=== PATIENT | male | born 1945 | race American Indian/Alaskan Native ===

== ENCOUNTER 2017-09-25 11:06 | Emergency (ER) | payer MEDICARE, BC ==
--- NOTE | 2017-09-25 21:24 | Emergency Department Report ---
ED Abdominal Pain HPI - General Chief Complaint: Rectal Pain Stated Complaint: HEMORIDS Time Seen by Provider: 09/25/17 20:50 Source: patient, family Mode of arrival: Ambulatory Limitations: No Limitations - History of Present Illness Initial Comments: 72-year-old male with a past medical history of prostate enlargement, end- stage renal disease dialysis presents to the hospital complaining of continued hemorrhoid pain for the last 2 months. Patient using [id number] medication without improvement. He denies any rectal bleeding and states his bowels are moving normally. He did not go to his scheduled dialysis today due to rectal pain and instead came to the ER for evaluation. Patient taking water pills and urinates about 1 time per day average. He denies any fever, nausea, vomiting, melena, hematochezia, or abdominal pain. Hemorrhoid/rectal Pain is moderate to severe in intensity. Severity scale (0 -10): 10 - Related Data Home Medications Medication Instructions Recorded Confirmed Last Taken Super Beta Prostate 2 cap PO DAILY 08/05/15 08/05/15 08/02/15 2 cap Tamsulosin [Flomax] 0.4 mg PO QDAY 08/05/15 08/05/15 08/02/15 0.4 mg Previous Rx's Medication Instructions Recorded Last Taken Type Epoetin Dagoberto 10,000 Unit [Procrit] 10,000 unit IV FAUSTINA PRN #1 vial 08/13/15 Unknown Rx HYDROcodone/APAP 5-325 [[place] 1 each PO Q4H PRN #30 tablet 08/13/15 Unknown Rx 5-325 mg TAB] Hydrocortisone [Anucort-HC SUPPOS] 25 mg RC BID PRN #20 supp.rect 09/26/17 Unknown Rx Allergies Allergy/AdvReac Type Severity Reaction Status Date / Time No Known Allergies Allergy Verified 02/07/15 21:15 ED Review of Systems ROS: Stated complaint: HEMORIDS Other details as noted in HPI Comment: All other systems reviewed and negative ED Past Medical Hx - Past Medical History Previous Medical History?: Yes Hx Renal Disease: Yes (dialysis Thursday, Thursday, and Thursday) Additional medical history: Takes a prescribed "water pill" to help urinate, kidney failure - Social History Smoking Status: Former Smoker - Medications Home Medications: Home Medications Medication Instructions Recorded Confirmed Last Taken Type Super Beta Prostate 2 cap PO DAILY 08/05/15 08/05/1508/01/16 History 2 cap Tamsulosin [Flomax] 0.4 mg PO QDAY 08/05/15 08/05/15 08/02/15 History 0.4 mg Epoetin Dagoberto 10,000 Unit [Procrit] 10,000 unit IV FAUSTINA PRN #1 vial 08/13/15 Unknown Rx HYDROcodone/APAP 5-325 [[place] 1 each PO Q4H PRN #30 tablet 08/13/15 Unknown Rx 5-325 mg TAB] Hydrocortisone [Anucort-HC SUPPOS] 25 mg RC BID PRN #20 supp.rect 09/26/17 Unknown Rx ED Physical Exam - General Limitations: No Limitations - Other Other exam information: General: No limitations, patient is alert in no acute distress Head exam: Atraumatic, normocephalic Eyes exam: Normal appearance, pupils equal reactive to light, extraocular movements intact ENT: Moist mucous membrane, normal oropharynx Neck exam: Normal inspection, full range of motion, no meningismus nontender Respiratory exam: Clear to auscultation bilateral, no wheezes, rales, crackles Cardiovascular: Normal rate and rhythm, right forearm dialysis access with palpable thrill Abdomen: Soft, nondistended, palpable suprapubic mass questionable bladder that is nontender on exam, with normal bowel sounds, no rebound, or guarding Rectal: Multiple pink hemorrhoids noted without active bleeding or necrosis Extremity: Full range of motion normal inspection no deformity Back: Normal Inspection, full range of motion, no tenderness Neurologic: Alert, oriented x3, cranial nerves intact, no motor or sensory deficit Psychiatric: normal affect, normal mood Skin: Warm, dry, intact ED Course Vital Signs 09/25/17 09/25/17 09/25/17 11:40 20:34 20:35 Temperature 98.7 F 98.1 F Pulse Rate 76 79 Respiratory 18 18 Rate Blood Pressure 179/88 Blood Pressure 127/83 [Left] O2 Sat by Pulse 99 98 98 Oximetry - Reevaluation(s) Reevaluation #1: 09/25/17 23:53 Family member at bedside states that pt has not been diagnosed with Prostate cancer and not undergoing treatment. Details of urology workup unknown. - Consultations Consultation #1: 09/25/17 23:52 case d/w DR Akers who is famililar with pt but not familiar with outpt urology workup 09/26/17 00:08 case d/w Dr Ness, since pt is nontender, without sepsis, with chronic renal failure and dialysis for several years . . he may f/u in office for further workup and treatment and prostate evaluation. PSA ordered to be followed per his request ED Medical Decision Making - Lab Data Result diagrams: 09/25/17 21:23 09/25/17 21:23 Lab Results 09/25/17 09/25/17 Range/Units 21:23 21:23 WBC 7.1 (4.5-11.0) K/mm3 RBC 3.58 L (3.65-5.03) M/mm3 Hgb 10.4 L (11.8-15.2) gm/dl Hct 31.7 L (35.5-45.6) % MCV 89 (84-94) fl MCH 29 (28-32) pg MCHC 33 (32-34) % RDW 16.9 H (13.2-15.2) % Plt Count 232 (140-440) K/mm3 Lymph % (Auto) 19.5 (13.4-35.0) % [place] % (Auto) 11.1 H (0.0-7.3) % Eos % (Auto) 1.9 (0.0-4.3) % Baso % (Auto) 1.2 (0.0-1.8) % Lymph # 1.4 (1.2-5.4) K/mm3 [place] # 0.8 (0.0-0.8) K/mm3 Eos # 0.1 (0.0-0.4) K/mm3 Baso # 0.1 (0.0-0.1) K/mm3 Seg Neutrophils % 66.3 (40.0-70.0) % Seg Neutrophils # 4.7 (1.8-7.7) K/mm3 Sodium 139 (137-145) mmol/L Potassium 4.6 (3.6-5.0) mmol/L Chloride 92.4 L (98-107) mmol/L Carbon Dioxide 26 (22-30) mmol/L Anion Gap 25 mmol/L BUN 60 H (9-20) mg/dL Creatinine 10.1 H (0.8-1.5) mg/dL Estimated GFR 6 ml/min BUN/Creatinine Ratio 6 % Glucose 92 (75-100) mg/dL Calcium 8.8 (8.4-10.2) mg/dL - Radiology Data Radiology results: report reviewed CT a/p non contrast IMPRESSION: 1. Marked distention of the bladder in both renal collecting systems with severe hydronephrosis present bilaterally. Findings are consistent with bladder outlet obstruction 2. Markedly enlarged prostate gland with irregular margins. Findings are suspicious for prostate neoplasm. 3. Multiple irregular soft tissue masses and adenopathy in the pelvis further differentiation is difficult without the benefit of any contrast. - Medical Decision Making Patient presents with chronic hemorrhoids however, bladder distention was identified on exam and confirmed by CT. As per medical record review this appears that this is chronic and ongoing for at least 2 years. The patient is currently asymptomatic and has no signs of leukocytosis, fever, or suprapubic pain. Patient also continues to have urinary output. Patient and family member at the bedside are unclear about the patient's prostate issues and previous workup. I discussed case with urologist is Dr Ness who states patient may follow up as an outpatient for further evaluation and PSA has been sent to be followed by his office. His primary Cloth Hauler Dr Akers is also and recommended that patient call first thing in the morning September 26 to schedule dialysis and he will also call to make arrangements for dialysis second shift. Patient will be referred to GI as outpatient for management of hemorrhoids and Anusol will be prescribed - Differential Diagnosis hemorrhoids, bladder mass/obstruction, end-stage renal disease needing dial Critical Care Time: No Critical care attestation.: If time is entered above; I have spent that time in minutes in the direct care of this critically ill patient, excluding procedure time. ED Disposition Clinical Impression: Hemorrhoids, Bladder outlet obstruction, ESRD on hemodialysis, Enlarged prostate Disposition: - TO HOME OR SELFCARE Is pt being admited?: No Does the pt Need Aspirin: No Condition: Stable Additional Instructions: Your CAT scan is concerning for prostate cancer. It is very important that you follow up with the urologist for further workup and evaluation. Your taker off hemp fiber Dr. Akers will arrange for dialysis today September 26Thursday. Please call your dialysis Center first thing in the morning to receive time to go in and receive your dialysis. Prescriptions: Hydrocortisone [Anucort-HC SUPPOS] 25 mg RC BID PRN #20 supp.rect PRN Reason: Hemorrhoids Referrals: NAEL EVANS MD [Staff Physician] - 3-5 Days (Neprhologist) RENE NESS MD [Staff Physician] - 3-5 Days (urologist) CLAY COKER MD [Staff Physician] - 3-5 Days (GI specialist) Time of Disposition: 00:24
[2017-09-25 21:33] LABS: Basophils # (Auto) 0.1 K/mm3 (0.0-0.1); Basophils % (Auto) 1.2 % (0.0-1.8); Eosinophils # (Auto) 0.1 K/mm3 (0.0-0.4); Eosinophils % (Auto) 1.9 % (0.0-4.3); Hematocrit 31.7 % (35.5-45.6); Hemoglobin 10.4 gm/dl (11.8-15.2); Lymphocytes # (Auto) 1.4 K/mm3 (1.2-5.4); Lymphocytes % (Auto) 19.5 % (13.4-35.0); Mean Corpuscular HGB Conc 33 % (32-34); Mean Corpuscular Hemoglobin 29 pg (28-32); Mean Corpuscular Volume 89 fl (84-94); Monocytes # (Auto) 0.8 K/mm3 (0.0-0.8); Monocytes % (Auto) 11.1 % (0.0-7.3); Platelet Count 232 K/mm3 (140-440); Red Blood Count 3.58 M/mm3 (3.65-5.03); Red Cell Distribution Width 16.9 % (13.2-15.2)
[2017-09-25 21:44] LABS: Calcium 8.8 mg/dL (8.4-10.2)
--- NOTE | 2017-09-25 22:43 | Cat Scan Report ---
FINAL REPORT EXAM: CT ABDOMEN PELVIS WO CON HISTORY: palp suprapubic mass on exam TECHNIQUE: Standard unenhanced CT of the abdomen and pelvis. Coronal and sagittal reconstruction was also performed. PRIORS: CT a/P 08/03/2015 FINDINGS: Prostate gland is markedly enlarged and multilobulated appearance. It measures at least 5.8 x 6.9 x 7.3 cm and causes a significant inferior mass impression on the bladder. The bladder is significantly over distended with wall thickening and areas of trabeculation. The overdistention of bladder account for the suprapubic palpable abnormality felt on physical exam. There is a probable diverticulum off the superior aspect of the bladder measuring 2.2 cm (sagittal image 78). There is marked distention of both renal collecting systems causing severe hydronephrosis of the kidneys. Findings suggest bladder outlet obstruction. In the posterior right pelvis located along the posterior margin of the prostate, there is a new irregular lobulated soft tissue density measuring 3.5 x 6.5 cm (axial image 147). I am uncertain whether this represents an extensive mass off the prostate gland, and abnormal seminal vesicle, or adenopathy. Further differentiation cannot be performed without the benefit of contrast. There are several enlarged lymph nodes in the presacral region measuring up to 2.1 x 2.0 cm in midline (axial image 129). There is also suspected bilateral pelvic adenopathy measuring up to 2.4 x 4.6 cm on the left (axial image 130). Within the abdomen, the liver, spleen, pancreas, gallbladder, and adrenal gland are unremarkable. No evidence for retroperitoneal lymphadenopathy is seen. The bowel loops have normal caliber. No fluid collection, inflammatory change, or free air is seen within the abdomen or pelvis. The appendix is not visualized. Images through the upper abdomen include the lung bases which are expanded and clear. Bony structures show severe disc space narrowing L5-S1. No focal sclerotic abnormality is seen. IMPRESSION: 1. Marked distention of the bladder in both renal collecting systems with severe hydronephrosis present bilaterally. Findings are consistent with bladder outlet obstruction 2. Markedly enlarged prostate gland with irregular margins. Findings are suspicious for prostate neoplasm. 3. Multiple irregular soft tissue masses and adenopathy in the pelvis further differentiation is difficult without the benefit of any contrast.
[2017-09-26 00:55] VITALS: BP 138/72
== END 2017-09-26 00:54 | disposition home or self-care (01) ==
LOC: ED 11:06
DX: K64.9 Unspecified hemorrhoids (principal); N32.0 Bladder-neck obstruction; N18.6 End stage renal disease; N40.0 Benign prostatic hyperplasia without lower urinary tract symptoms; Z99.2 Dependence on renal dialysis; Z87.891 Personal history of nicotine dependence
CPT/HCPCS: 36415; 74176; 80048; 84153; 85025